=== PATIENT | female | born 1945 | race Caucasian/White ===

== ENCOUNTER 2020-02-26 09:07 | Emergency (ER) | payer MEDICARE, OTHER, SELFPAY ==
[2020-02-26 09:09] VITALS: BP 158/92; PULSE 97; RESP 18; TEMP 36.9; O2SAT 98; BMI 24.9
--- NOTE | 2020-02-26 09:20 | HMH.EDGENADL ---
ED Disposition Clinical Impression: Tachycardia, Hyperglycemia Disposition: Home, Self-Care Condition on Discharge: Good Instructions: DI for Tachycardia Additional Instructions: See Dr. Linares in the office on Sunday. See Dr. Medley for follow-up of your blood sugar. Holter monitor as arranged. Referrals: Jake Medley [Primary Care Provider] - Min Linares MD [Staff Physician] - - Critical Care Critical Care Time: No Attestation: On , the high probability of a clinically significant, sudden or life threatening deterioration of the following system(s) required my full and direct attention, intervention and personal management. The time I documented below is in addition to time spent performing reported procedures but includes the following listed in this critical care notation. Medical Decision Making - Medical Records Medical records reviewed: Yes: I reviewed the patient's medical records. - Darian Inquiry Pt receiving controlled substance: No Vital Signs: 02/26/20 09:09 02/26/20 10:09 Temperature 98.5 F Temperature Source Oral Pulse Rate [Right] 97 H 91 H Respiratory Rate 18 18 Blood Pressure [Right Arm] 158/92 H 137/86 Blood Pressure Mean [Right Arm] 114 103 Blood Pressure Source [Right Arm] Automatic Cuff Blood Pressure Position [Right Arm] Sitting 02 Sat by Pulse Oximetry 98 98 Oxygen Delivery Method Room Air - Lab Data Lab results reviewed: Yes: I reviewed the patient's lab results. Lab Results 02/26/20 09:20: WBC 5.5, RBC 5.01, Hgb 15.2, Hct 46.7, MCV 93.1, MCH 30.3, MCHC 32.5, RDW 13.0, Plt Count 182, MPV 9.0, Neut % (Auto) 55.4, Lymph % (Auto) 31.9, [place] % (Auto) 6.1, Eos % (Auto) 5.3, Baso % (Auto) 1.3, Neut # (Auto) 3.1, Lymph # (Auto) 1.8, [place] # (Auto) 0.3, Eos # (Auto) 0.3, Baso # (Auto) 0.1 02/26/20 09:20: Sodium 139, Potassium 3.4 L, Chloride 106, Carbon Dioxide 27, Anion Gap 9.4, BUN 12, Creatinine 0.70, Estimated Creat Clear 53, Estimated GFR 82, Est GFR ( Amer) 100, Glucose 173 H, Calcium 9.4, Total Bilirubin 0.6, AST 25, ALT 23, Alkaline Phosphatase 95, Troponin I < 0.01, Total Protein 7.6, Albumin 4.6, Globulin 3.0, Albumin/Globulin Ratio 1.5, TSH 1.88, Thyroxine (T4) 9.0 Result diagrams: 02/26/20 09:20 02/26/20 09:20 Orders (Tests/Meds): ORDERS Category Date Time Status Troponin I Q3H Lab 02/26/20 12:30 Ordered Troponin I Q3H Lab 02/26/20 15:30 Ordered ECG Request by /Mary Ellen Stat Y 02/26/20 09:25 Ordered Holter Monitor Req by Mary Ellen/ Stat Y 02/26/20 11:06 Ordered - Radiology Data #1 Image(s): Chest Image Reviewed: Yes I reviewed the patient's radiology image Preliminary Findings: Normal/NAD - ECG Data Tracing #1 EKG interpreted by Fito Arambula MD: Rhythm: sinus tachycardia Rate: 104 [place]: normal Ectopy: none Conduction: normal ST Segment Changes: none T Wave Changes: none Q Waves: none No evidence of acute ischemia or injury - Physician Consults Physician Consulted: MANDI Cabrera, for Dr. Linares Time: 11:02 Reason -: Cardiology Eval/Care Comment/Response: 48-hour Holter monitor. Follow-up in their office on Sunday. General Adult HPI - General Stated complaint: Elavated heart rate Time Seen by Provider: 02/26/20 09:34 - History of Present Illness HPI narrative: Patient complains of a fast heartbeat. She says she has a prior history of SVT and had an ablation, Dr. Grey, about 3 years ago. She was sent there by Dr. Linares. She no longer sees cardiology. States that on Sunday, 3 days ago, she had a fast heartbeat that lasted most of the day. She had a doctor's appointment in [place] for a yearly Pap smear that afternoon at 1:30 PM and she says that she gets nervous about doctors appointments and she chalked it up to that. She says at the time of her doctor's appointment they took her vital signs and did not say anything about her heart rate being fast. Symptoms occurred again this morning
--- NOTE | 2020-02-26 09:25 | XR_ITS ---
PROCEDURE: XR CHEST 2V CLINICAL HISTORY: heart Hypertension, tachycardia COMPARISON: CXR1 CHEST-PORTABLE from 10/19/2016 CXR CHEST(2 VIEWS-NOT PORTABLE) from 04/17/2017 FINDINGS: The cardiomediastinal silhouette and pulmonary vascularity are within normal limits. Increased density is present in the retrocardiac region and may be due to band of atelectasis/scarring or infiltrate. Consider follow-up No acute bony abnormalities. IMPRESSION: Bandlike density in the retrocardiac region which could be due to an area of atelectasis or scarring versus an area of patchy infiltrate. Consider follow-up confirm stability or resolution Dictated by: Rad Liang MD 02/26/2020 10:45 Electronically signed by Rad Liang MD in [place] 02/26/2020 10:45
--- NOTE | 2020-02-26 09:25 | ECG_ITS ---
APPROVED REPORT Exam: Resting ECG HR:104 bpm ECG Measurements Heart Rate 104 AXES MN 148 P 52 QRSd 74 QRS -6 QT 344 T 39 QTc 452 <Conclusion> Sinus tachycardia Otherwise normal ECG Electronically signed by : Andrea Palacios, 02/26/2020 16:56:23
[2020-02-26 09:33] LABS: Chloride 106 mmol/L (98-107)
[2020-02-26 09:34] LABS: Basophils # 0.1 K/mm3 (0-0.2); Basophils % 1.3 % (0.1-2.0); Eosinophils # 0.3 K/mm3 (0.0-0.4); Eosinophils % 5.3 % (0.1-12.0); Hematocrit 46.7 % (37.0-47.0); Hemoglobin 15.2 g/dL (12.2-16.2); Lymphocytes # 1.8 K/mm3 (0.7-4.5); Lymphocytes % 31.9 % (10-50); Mean Corpuscular HGB Conc 32.5 g/dL (31.8-35.4); Mean Corpuscular Hemoglobin 30.3 pg (27.0-31.2); Mean Corpuscular Volume 93.1 fl (81-99); Monocytes # 0.3 K/mm3 (0.1-1.0); Monocytes % 6.1 % (1.7-9.3); Neutrophils # 3.1 K/mm3 (1.8-7.8); Neutrophils % 55.4 % (37.0-80.0); Platelet Count 182 K/mm3 (142-424); Potassium 3.4 mmoL/L (3.5-5.1); Red Blood Count 5.01 M/mm3 (4.20-5.40); Sodium 139 mmol/L (136-145); White Blood Count 5.5 K/mm3 (4.8-10.8)
[2020-02-26 09:36] LABS: Alanine Aminotransferase 23 U/L (12-78); Aspartate Amino Transferase 25 U/L (14-36); Blood Urea Nitrogen 12 mg/dl (7-17); Creatinine Clearance Estimated 53 mL/min (50-200); Estimated Glomerular Filt Rate 82 ml/min (>60); GFR (African American) 100 ML/MIN (>60)
[2020-02-26 09:37] LABS: Albumin Level 4.6 g/dl (3.5-5.0); Albumin/Globulin Ratio 1.5 (1.1-1.8); Alkaline Phosphatase 95 U/L (38-126); Anion Gap 9.4 mEq/L (5-15); Bilirubin,Total 0.6 mg/dl (0.2-1.3); Calcium 9.4 mg/dl (8.4-10.2); Carbon Dioxide 27 mmol/L (22.0-30.0); Glucose 173 mg/dl (74-100); Total Protein,Serum 7.6 g/dl (6.3-8.2)
[2020-02-26 09:50] LABS: Troponin I < 0.01 ng/ml (0.00-0.034)
[2020-02-26 10:08] LABS: Thyroid Stimulating Hormone 1.88 uIU/mL (0.465-4.68)
[2020-02-26 10:09] VITALS: BP 137/86; PULSE 91; RESP 18; O2SAT 98
--- NOTE | 2020-02-26 10:17 | PC.NURSE ---
MESSAGE LEFT FOR ROMAIN TO COME SEE PT OR CALL DR HUNT
--- NOTE | 2020-02-26 10:35 | PC.NURSE ---
PT AMBULATED TO THE BR WITH NO PROBLEMS
--- NOTE | 2020-02-26 10:37 | PC.NURSE ---
speaking to Dr Rodriguez
--- NOTE | 2020-02-26 10:39 | PC.NURSE ---
Gave [facility] detail on pt, stated he would call back
--- NOTE | 2020-02-26 11:20 | PC.NURSE ---
resp here putting holter monitor on
[2020-02-26 11:32] VITALS: BP 129/55; PULSE 95; RESP 20; TEMP 36.8; O2SAT 98
== END 2020-02-26 11:34 | disposition home or self-care (01) ==
PROVIDERS: Emergency Provider Emergency Medicine; PCP Internal Medicine
DX: I47.1 Supraventricular tachycardia (principal); I10 Essential (primary) hypertension; E78.5 Hyperlipidemia, unspecified; R73.9 Hyperglycemia, unspecified; Z79.899 Other long term (current) drug therapy
CPT/HCPCS: 71046; 80053; 84436; 84443; 84484; 85025; 93005; 93225; 93226; 99283

== ENCOUNTER 2020-02-28 15:01 | Emergency (ER) | payer MEDICARE, OTHER, SELFPAY ==
[2020-02-28 15:15] VITALS: BP 109/78; PULSE 87; RESP 20; TEMP 36.7; O2SAT 94; BMI 23.8
--- NOTE | 2020-02-28 15:37 | ECG_ITS ---
APPROVED REPORT Exam: Resting ECG HR:94 bpm ECG Measurements Heart Rate 94 AXES MI 140 P 50 QRSd 72 QRS -14 QT 346 T 30 QTc 432 <Conclusion> Normal sinus rhythm Inferior infarct, age undetermined Abnormal ECG Electronically signed by : Andrea Palacios, 03/03/2020 17:12:04
[2020-02-28 15:44] LABS: Basophils # 0.1 K/mm3 (0-0.2); Basophils % 1.2 % (0.1-2.0); Eosinophils # 0.3 K/mm3 (0.0-0.4); Eosinophils % 4.3 % (0.1-12.0); Hematocrit 45.7 % (37.0-47.0); Hemoglobin 15.8 g/dL (12.2-16.2); Lymphocytes # 1.6 K/mm3 (0.7-4.5); Lymphocytes % 25.3 % (10-50); Mean Corpuscular HGB Conc 34.6 g/dL (31.8-35.4); Mean Corpuscular Hemoglobin 31.5 pg (27.0-31.2); Mean Corpuscular Volume 91.1 fl (81-99); Monocytes # 0.5 K/mm3 (0.1-1.0); Monocytes % 7.4 % (1.7-9.3); Neutrophils # 3.9 K/mm3 (1.8-7.8); Neutrophils % 61.9 % (37.0-80.0); Platelet Count 174 K/mm3 (142-424); Red Blood Count 5.02 M/mm3 (4.20-5.40); Red Cell Distribution Width 13.3 % (11.5-17.5); White Blood Count 6.3 K/mm3 (4.8-10.8)
[2020-02-28 15:49] LABS: Alanine Aminotransferase 19 U/L (12-78); Albumin/Globulin Ratio 1.6 (1.1-1.8); Alkaline Phosphatase 90 U/L (38-126); Anion Gap 16.1 mEq/L (5-15); Aspartate Amino Transferase 28 U/L (14-36); Bilirubin,Total 0.5 mg/dl (0.2-1.3); Blood Urea Nitrogen 17 mg/dl (7-17); Calcium 10.3 mg/dl (8.4-10.2); Carbon Dioxide 29 mmol/L (22.0-30.0); Chloride 99 mmol/L (98-107); Creatinine Clearance Estimated 47 mL/min (50-200); Estimated Glomerular Filt Rate 82 ml/min (>60); GFR (African American) 100 ML/MIN (>60); Globulin 3.2 g/dL (1.3-3.2); Glucose 152 mg/dl (74-100); Potassium 4.1 mmoL/L (3.5-5.1); Sodium 140 mmol/L (136-145); Total Protein,Serum 8.2 g/dl (6.3-8.2)
[2020-02-28 16:02] LABS: Troponin I < 0.01 ng/ml (0.00-0.034)
--- NOTE | 2020-02-28 16:09 | PC.NURSE ---
Pt stated she feels clammy and her ears feel hot Notified MD BARBARA at bedside
[2020-02-28 16:11] VITALS: BP 103/76; PULSE 84; RESP 16; O2SAT 94
--- NOTE | 2020-02-28 16:31 | HMH.EDARPALP ---
ED Disposition Clinical Impression: Palpitations, Sinus tachycardia Disposition: Home, Self-Care Condition on Discharge: Good Instructions: Cardiac Arrhythmia (Alternative Therapy) Prescriptions: Metoprolol Succinate [Metoprolol Succinate 25mg Tablet*] 25 mg PO DAILY 30 Days #30 tab Prescription Printed Referrals: Jake Medley [Primary Care Provider] - - Critical Care Critical Care Time: No Attestation: On 02/28/20, the high probability of a clinically significant, sudden or life threatening deterioration of the following system(s) required my full and direct attention, intervention and personal management. The time I documented below is in addition to time spent performing reported procedures but includes the following listed in this critical care notation. Medical Decision Making - Medical Records Medical records reviewed: Yes: I reviewed the patient's medical records. - Darian Inquiry Pt receiving controlled substance: No Vital Signs: 02/28/20 15:15 02/28/20 16:11 Temperature 98.1 F Temperature Source Oral Pulse Rate [Right] 87 84 Respiratory Rate 20 16 Blood Pressure [Right Arm] 109/78 L 103/76 L Blood Pressure Mean [Right Arm] 88 85 02 Sat by Pulse Oximetry 94 L 94 L - Lab Data Lab results reviewed: Yes: I reviewed the patient's lab results. Lab Results 02/28/20 15:20: WBC 6.3, RBC 5.02, Hgb 15.8, Hct 45.7, MCV 91.1, MCH 31.5 H, MCHC 34.6, RDW 13.3, Plt Count 174, MPV 9.0, Neut % (Auto) 61.9, Lymph % (Auto) 25.3, [place] % (Auto) 7.4, Eos % (Auto) 4.3, Baso % (Auto) 1.2, Neut # (Auto) 3.9, Lymph # (Auto) 1.6, [place] # (Auto) 0.5, Eos # (Auto) 0.3, Baso # (Auto) 0.1 02/28/20 15:20: Sodium 140, Potassium 4.1 D, Chloride 99, Carbon Dioxide 29, Anion Gap 16.1 H, BUN 17 D, Creatinine 0.70, Estimated Creat Clear 47, Estimated GFR 82, Est GFR ( Amer) 100, Glucose 152 H, Calcium 10.3 H, Total Bilirubin 0.5, AST 28, ALT 19, Alkaline Phosphatase 90, Troponin I < 0.01, Total Protein 8.2, Albumin 5.0, Globulin 3.2, Albumin/Globulin Ratio 1.6 Result diagrams: 02/28/20 15:20 02/28/20 15:20 Orders (Tests/Meds): ED MEDICATIONS Discontinued Medications Generic Name Dose Route Start Last Admin Trade Name Iris PRN Reason Stop Dose Admin Metoprolol Succinate 25 mg 02/28/20 16:19 02/28/20 16:23 Toprol Xl 25mg Tablet PO 02/28/20 16:20 25 mg ONCE ONE Administration ORDERS Category Date Time Status Troponin I Q3H Lab 02/28/20 18:45 Ordered Troponin I Q3H Lab 02/28/20 21:45 Ordered ECG Request by /Mary Ellen Stat Y 02/28/20 15:37 Ordered - Radiology Data #1 Image(s): Chest Preliminary Findings: Normal/NAD - ECG Data Tracing #1 I reviewed this ECG and interpreted as documented below: Normal Sinus Rhythm: Yes Arrhythmia/Palpitations HPI - General Chief Complaint: Arrhythmia/Palpitations Stated Complaint: Rapid heart rate Time Seen by Provider: 02/28/20 16:30 Mode of Arrival: Ambulatory Source of Information: Patient Limitations: No Limitations - History of Present Illness HPI narrative: 74-year-old female comes in with complaint of having tachycardia at home. She was seen on for having sinus tachycardia and in the ED here we did consult cardiology and recommended Holter monitor for 24 hours. She did wear the Holter monitor for 24 hours and then returned that and she has a follow-up appoint with cardiology on March 08. She also states 3 years ago she had a cardiac ablation and she is had no issues until recently. As of note she has been on Synthroid and that dose was increased recently. Denies any chest pain. - Related Data Home Medications Medication Instructions Recorded Confirmed Levothyroxine Sodium [Synthroid 25 mcg PO DAILY 02/28/20 02/28/20 25mcg (0.025mg) tablet] Lisinopril/Hydrochlorothiazide 20 mg PO DAILY 02/28/20 02/28/20 [Lisinopril-Hctz 20-12.5 mg Tab] Rosuvastatin Calcium [Crestor 10mg 10 mg PO DAILY 0
[2020-02-28 16:42] VITALS: BP 113/77; PULSE 76; RESP 20; TEMP 36.8; O2SAT 98
== END 2020-02-28 16:45 | disposition home or self-care (01) ==
LOC: UTC 15:10 → ER 15:14
PROVIDERS: Emergency Provider Family Medicine; PCP Internal Medicine
DX: I47.1 Supraventricular tachycardia (principal); E03.9 Hypothyroidism, unspecified; Z79.899 Other long term (current) drug therapy
CPT/HCPCS: 80053; 84484; 85025; 93005; 99283

== ENCOUNTER → 2020-03-08 11:31 | Outpatient (CLI) | payer MEDICARE, OTHER, SELFPAY | PROVIDERS: PCP Internal Medicine; Visit Provider Urology | DX: R00.0 Tachycardia, unspecified (principal); R00.2 Palpitations | CPT/HCPCS: 93270 ==

== ENCOUNTER → 2020-03-10 12:34 | Outpatient (CLI) | payer MEDICARE, OTHER, SELFPAY ==
--- NOTE | 2020-03-10 12:35 | CA_ITS ---
APPROVED REPORT EXAM: Comprehensive 2D, Doppler, and color-flow Echocardiogram Kiln Drawer: Porsche Storey RVT Ht: 5 ft 4 in Wt: 143lbs BSA: 1.70 BP: 154/84 mmHg Indications: PALPS,SINUS TACH,PRIOR ABLATION,HTN,HLD 2D Dimensions LVOT 1.49 cm (M/F) 1.5-2.5 M-Mode Dimensions RVDd 2.24 cm (0.9-2.6) LVDd 3.50 cm (3.5-5.7) LVDs 2.17 cm (3.5-5.7) IVSd 0.97 cm (0.6-1.1) PWd 0.53 cm (0.6-1.1) EF (Teich) 69.20% FS 38.00% EDV (Teich) 50.90 mL ESV (Teich) 15.70 mL LV Diastology E/A Ratio 0.78 Mitral Valve MV A Velocity 109.00 (40-130 cm/s) Left Ventricle Left atrium is mildly enlarged, left ventricle is normal size, mild concentric left ventricular hypertrophy, visually estimated ejection fraction 55% with no regional wall motion abnormality, grade 1 diastolic dysfunction seen without tissue Doppler evidence of raise left atrial pressure. Right Ventricle Right atrium right ventricular normal size and contractility. Aortic Valve Aortic valve is minimally thickened and fibrosed, there is no aortic stenosis or aortic insufficiency. Mitral Valve Mitral valve is grossly normal, there is mild mitral regurgitation. Tricuspid Valve Tricuspid valve is grossly normal, there is mild tricuspid regurgitation, tricuspid regurgitation jet velocity is inadequate for calculation of the right ventricular systolic pressure. Pulmonic Valve Pulmonic valve is poorly visualized. Great Vessels Aortic root is normal size. Pericardium No significant pericardial effusion noted. Conclusion 1. Mildly enlarged left atrium, normal left ventricular size, mild concentric left ventricular hypertrophy, visually estimated ejection fraction 55% with no regional wall motion abnormality, grade 1 diastolic dysfunction seen without tissue Doppler evidence of raise left atrial pressure. 2. Thickened and calcified aortic valve without aortic stenosis or aortic insufficiency. 3. Mild mitral and tricuspid regurgitation. 4. No significant pericardial effusion noted. Electronically signed by : Agustin Srivastava, 03/11/2020 13:28:43
== END ==
PROVIDERS: PCP Internal Medicine; Visit Provider Urology
DX: R00.0 Tachycardia, unspecified (principal); R00.2 Palpitations
CPT/HCPCS: 93306

== ENCOUNTER → 2021-02-16 11:41 | Outpatient (CLI) | payer MEDICARE, OTHER, SELFPAY ==
[2021-02-16 12:54] LABS: Platelet Count 154 K/mm3 (142-424)
== END ==
PROVIDERS: Visit Provider Internal Medicine
DX: D69.6 Thrombocytopenia, unspecified (principal)
CPT/HCPCS: 85049

== ENCOUNTER → 2021-09-07 11:09 | Outpatient (CLI) | payer MEDICARE, OTHER, SELFPAY | PROVIDERS: PCP Internal Medicine; Visit Provider Nurse Practitioner | DX: Z20.822 Contact with and (suspected) exposure to COVID-19 (principal) | CPT/HCPCS: C9803; U0003; U0005 ==

== ENCOUNTER → 2021-10-24 07:40 | Outpatient (CLI) | payer MEDICARE, OTHER, SELFPAY | PROVIDERS: PCP Internal Medicine; Visit Provider Surgery | DX: R19.8 Other specified symptoms and signs involving the digestive system and abdomen (principal) ==

== ENCOUNTER → 2021-10-26 08:38 | Outpatient (CLI) | payer MEDICARE, OTHER, SELFPAY ==
--- NOTE | 2021-10-26 08:39 | FL_ITS ---
FINAL REPORT CLINICAL HISTORY: food stuck, fluro time 2.02 FINDINGS: UPPER GI EXAM HISTORY:Dysphagia PROCEDURE: The patient ingested barium. Effervescent crystals were also administered. Spot and overhead films were obtained. FINDINGS:There is a small sliding-type hiatal hernia with a Schatzki's ring. There is esophageal dysmotility. There is narrowing of the distal esophagus consistent with a mild to moderate stricture.There is gastroesophageal reflux confined to the distal half of the esophagus. 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 FLUOROSCOPY TIME:2 minutes IMPRESSION: 1. Mild to moderate stricture of the distal esophagus. Endoscopic correlation recommended. 2. Mild gastroesophageal reflux. 3. Esophageal dysmotility. Films reviewed , interpreted and dictated by Dr. Molina Transcribed by Mario Shrestha PA-C. Reviewed, Interpreted and Dictated by Gordo Molina III, MD Transcribed by MANDI Cottrell Authenticated by Gordo Molina III, MD on 10/26/2021 12:27:29 PM [facility]
== END ==
PROVIDERS: PCP Internal Medicine; Visit Provider Surgery
DX: R19.8 Other specified symptoms and signs involving the digestive system and abdomen (principal); T17.228A Food in pharynx causing other injury, initial encounter
CPT/HCPCS: 74246

== ENCOUNTER → 2021-11-09 10:21 | Outpatient (CLI) | payer MEDICARE, OTHER, SELFPAY | PROVIDERS: Visit Provider Surgery | DX: Z01.812 Encounter for preprocedural laboratory examination (principal); Z11.52 Encounter for screening for COVID-19; Z13.810 Encounter for screening for upper gastrointestinal disorder; R13.10 Dysphagia, unspecified | CPT/HCPCS: C9803; U0003; U0005 ==

== ENCOUNTER 2021-11-11 06:24 | Day surgery (SDC) | payer MEDICARE, OTHER, SELFPAY ==
[2021-11-07 10:17] VITALS: BMI 24.5
[2021-11-11] VITALS (7 sets, daily range): BP systolic 75–148; BP diastolic 48–90; PULSE 60–71; RESP 16–18; TEMP 36.6–37.1; O2SAT 96–99
--- NOTE | 2021-11-11 07:13 | HMH.ANESCL ---
[facility] Anesthesia Checklist - Patient Identification Patient Identification: Arm Band - Structural Data Admitted From: Home Planned Operative Procedure/s: EGD Consent for Planned Operative Procedure(s) Verified: Yes - NPO Status Verified Time NPO: 00:00 - Airway Assessment C-Spine Mobility Assessed: Yes TMJ Mobility Assessed: Yes Dentition: Good Dentition - Neurological Assessment Level of Consciousness: Awake Hx Seizures: No Numbness or tingling in extremities: No - Anesthesia Plan Anesthesia Risk discussed: Yes Anesthesia Plan: Verified ASA Class: II Anesthesia Type: MAC [facility] History I have reviewed the patient's past medical history: Yes Medical History: Reports:: Hyperlipidemia, Hypertension, Palpitations Denies:: Cancer, Diabetes Mellitus Type 1, Diabetes Mellitus Type 2, Internal Pacemaker, MRSA, Seizures *Have you ever received a pneumonia vaccine?: No *Have you received a flu vaccine this season?: Yes Anesthesia experience/problems:: None Other Surgeries: No: Pacemaker Amputation: No Fractures: No - *Social History Last grade of school completed: Some college Smoking Status: Never smoker Alcohol Intake: never Substance Use Type: denies use *Occupational Status:: retired Housing: house Household Members: spouse *Travel in the last 8 weeks: None Family Hx:: Unable to obtain
--- NOTE | 2021-11-11 07:38 | P.PCN_ITS ---
- Procedure: Date: 11/11/21 Patient Date of :: 1945 Procedure Performed:: Esophagogastroduodenoscopy with biopsy and dilatation Indications:: Patient is a very pleasant 75-year-old female referred by Dr. Medley for EGD. She states that recently she had taken her medication and it became lodged . She had a sensation of it being lodged in the lower chest area. She states it was quite severe and she had significant pain. This persisted. She was on her way for medical attention and had regurgitation of food material with relief of the symptoms. She was seen in the office and scheduled for surgical consultation for EGD. She does state that she has had no similar symptoms as severe as this but has occasionally had transient dysphagia when eating certain foods. She has recently been started on famotidine. I did have her undergo upper GI. This revealed mild to moderate stricture of the distal esophagus with findings consistent with esophageal dysmotility. Performing Provider:: Gordo Gramajo MD Referring Provider:: Jake Medley MD Sedation:: MAC sedation Procedure:: Patient was taken to endoscopy procedure room. She was positioned in lateral decubitus position. Adequate intravenous sedation was achieved with anesthesia titration of propofol. Olympus endoscope was inserted via the oropharynx. Esophagus was cannulated. There was some tortuosity and findings consistent with some esophageal dysmotility. Gastroesophageal junction was encountered at approximately 35 cm. There was a stricture consistent with Schatzki's ring. Stomach was cannulated and insufflated. Retroflexion revealed a moderate sliding hiatal hernia. There were several gastric polyps consistent with fundic gland polyps. Gastric antral mucosal biopsies obtained for CLOtest for H. pylori. Pylorus was traversed. Duodenal bulb and duodenal sweep are unremarkable. Endoscope was withdrawn into the stomach. Gastric antral mucosal biopsies obtained for histopathologic analysis. One of the presumed gastric fundic gland polyps was removed with cold biopsy forceps for sampling. Endoscope was withdrawn into the distal esophagus. Couple biopsies were obtained of the Schatzki's ring benign-appearing stricture. This was then dilated sequentially using the pneumatic dilator to 18 mm then 19 mm then ultimately 20 mm. Stomach was desufflated and the endoscope was withdrawn. Findings:: Gastroesophageal junction 35 cm from the incisors Findings of some esophageal dysmotility Benign-appearing stricture, Schatzki's ring distal esophagus Moderate sliding hiatal hernia Fundic gland polyps Recommendations:: I will plan to follow-up on the biopsies. Treat H. pylori if positive. May ne ed proton pump inhibitor. Complications:: None immediately apparent Estimated blood obtained (mL): 3
== END 2021-11-11 08:25 | disposition home or self-care (01) ==
LOC: OUTP 06:25
PROVIDERS: PCP Internal Medicine; Visit Provider Surgery
PROC: 0DJ08ZZ Inspection of Upper Intestinal Tract, Via Natural or Artificial Opening Endoscopic (ICD-10-PCS; CPT 43235; principal; 2021-11-11 07:30)
DX: K22.2 Esophageal obstruction (principal); K44.9 Diaphragmatic hernia without obstruction or gangrene; K31.7 Polyp of stomach and duodenum; K22.4 Dyskinesia of esophagus; E78.5 Hyperlipidemia, unspecified; I10 Essential (primary) hypertension; R00.2 Palpitations; Z86.79 Personal history of other diseases of the circulatory system; Z79.899 Other long term (current) drug therapy
CPT/HCPCS: 43239; 43249; 87339; 88305; C1726

== ENCOUNTER → 2021-11-16 12:18 | Outpatient (CLI) | payer MEDICARE, OTHER, SELFPAY ==
[2021-11-16 14:04] LABS: Basophils % 0.8 % (0.1-2.0); Eosinophils # 0.3 K/mm3 (0.0-0.4); Eosinophils % 5.6 % (0.1-12.0); Hematocrit 43.1 % (37.0-47.0); Hemoglobin 13.8 g/dL (12.2-16.2); Lymphocytes # 1.4 K/mm3 (0.7-4.5); Lymphocytes % 28.8 % (10-50); Mean Corpuscular HGB Conc 31.9 g/dL (31.8-35.4); Mean Corpuscular Hemoglobin 30.9 pg (27.0-31.2); Mean Corpuscular Volume 96.6 fl (81-99); Mean Platelet Volume 11.3 fl (7.4-10.4); Monocytes # 0.4 K/mm3 (0.1-1.0); Monocytes % 8.8 % (1.7-9.3); Neutrophils # 2.8 K/mm3 (1.8-7.8); Neutrophils % 55.9 % (37.0-80.0); Platelet Count 168 K/mm3 (142-424); Red Blood Count 4.46 M/mm3 (4.20-5.40); Red Cell Distribution Width 14.3 % (11.5-17.5); White Blood Count 4.9 K/mm3 (4.8-10.8)
[2021-11-16 14:40] LABS: Alanine Aminotransferase 17 U/L (12-78); Albumin Level 4.4 g/dl (3.5-5.0); Albumin/Globulin Ratio 1.8 (1.1-1.8); Alkaline Phosphatase 72 U/L (38-126); Anion Gap 12.4 mEq/L (5-15); Aspartate Amino Transferase 28 U/L (14-36); Bilirubin,Total 0.7 mg/dl (0.2-1.3); Blood Urea Nitrogen 15 mg/dl (7-17); Calcium 9.1 mg/dl (8.4-10.2); Carbon Dioxide 30 mmol/L (22.0-30.0); Chloride 103 mmol/L (98-107); Chol/HDL Ratio 2.7 (1-3.5); Cholesterol 145 mg/dl (140-200); Estimated Glomerular Filt Rate 98 ml/min (>60); GFR (African American) 119 ML/MIN (>60); Globulin 2.4 g/dL (1.3-3.2); Glucose 84 mg/dl (74-100); HDL Cholesterol 54 mg/dl (40-60); Potassium 4.4 mmoL/L (3.5-5.1); Sodium 141 mmol/L (136-145); Total Protein,Serum 6.8 g/dl (6.3-8.2); Triglycerides 117 mg/dl (30-150); VLDL Cholesterol 23 mg/dL (0-40)
[2021-11-16 14:51] LABS: Direct LDL Cholesterol 59.65 mg/dL (100-129)
[2021-11-16 15:10] LABS: Thyroid Stimulating Hormone 2.08 uIU/mL (0.465-4.68)
[2021-11-16 15:47] LABS: Free T4 (Free Thyroxine) 1.15 ng/dl (0.78-2.19)
== END ==
PROVIDERS: Visit Provider Internal Medicine
DX: I10 Essential (primary) hypertension (principal); E03.9 Hypothyroidism, unspecified; E78.5 Hyperlipidemia, unspecified; Z86.79 Personal history of other diseases of the circulatory system
CPT/HCPCS: 80053; 80061; 84439; 84443; 85025

== ENCOUNTER → 2022-05-19 14:08 | Outpatient (CLI) | payer MEDICARE, OTHER, SELFPAY ==
[2022-05-19 16:34] LABS: Chloride 102 mmol/L (98-107); Sodium 141 mmol/L (136-145)
[2022-05-19 16:35] LABS: Potassium 4.7 mmoL/L (3.5-5.1)
[2022-05-19 16:37] LABS: Alanine Aminotransferase 22 U/L (12-78); Albumin Level 4.6 g/dl (3.5-5.0); Albumin/Globulin Ratio 1.8 (1.1-1.8); Alkaline Phosphatase 97 U/L (38-126); Anion Gap 12.7 mEq/L (5-15); Aspartate Amino Transferase 30 U/L (14-36); Bilirubin,Total 0.5 mg/dl (0.2-1.3); Blood Urea Nitrogen 18 mg/dl (7-17); Carbon Dioxide 31 mmol/L (22.0-30.0); Estimated Glomerular Filt Rate 82 ml/min (>60); GFR (African American) 99 ML/MIN (>60); Globulin 2.6 g/dL (1.3-3.2); Total Protein,Serum 7.2 g/dl (6.3-8.2)
[2022-05-19 16:38] LABS: Calcium 9.7 mg/dl (8.4-10.2); Glucose 88 mg/dl (74-100); HDL Cholesterol 62 mg/dl (40-60)
[2022-05-19 16:56] LABS: Chol/HDL Ratio 2.5 (1-3.5); Cholesterol 152 mg/dl (140-200); Triglycerides 95 mg/dl (30-150); VLDL Cholesterol 19 mg/dL (0-40)
[2022-05-24 19:08] LABS: Direct LDL Cholesterol 66 mg/dL (100-129)
== END ==
PROVIDERS: PCP Internal Medicine; Visit Provider Internal Medicine
DX: E78.5 Hyperlipidemia, unspecified (principal); I47.1 Supraventricular tachycardia; I10 Essential (primary) hypertension
CPT/HCPCS: 80053; 80061

== ENCOUNTER → 2022-11-24 12:08 | Outpatient (CLI) | payer MEDICARE, OTHER, SELFPAY ==
[2022-11-24 13:09] LABS: Basophils # 0.1 K/mm3 (0-0.2); Basophils % 1.7 % (0.1-2.0); Eosinophils # 0.3 K/mm3 (0.0-0.4); Eosinophils % 7.7 % (0.1-12.0); Hematocrit 44.4 % (37.0-47.0); Hemoglobin 14.6 g/dL (12.2-16.2); Lymphocytes # 1.4 K/mm3 (0.7-4.5); Mean Corpuscular HGB Conc 32.8 g/dL (31.8-35.4); Mean Corpuscular Hemoglobin 30.6 pg (27.0-31.2); Mean Corpuscular Volume 93.1 fl (81-99); Mean Platelet Volume 10.7 fl (7.4-10.4); Monocytes # 0.4 K/mm3 (0.1-1.0); Neutrophils # 2.2 K/mm3 (1.8-7.8); Neutrophils % 49.6 % (37.0-80.0); Platelet Count 180 K/mm3 (142-424); Red Blood Count 4.76 M/mm3 (4.20-5.40); White Blood Count 4.4 K/mm3 (4.8-10.8)
[2022-11-24 14:00] LABS: Chloride 102 mmol/L (98-107); Potassium 4.5 mmoL/L (3.5-5.1); Sodium 139 mmol/L (136-145)
[2022-11-24 14:02] LABS: Alanine Aminotransferase 21 U/L (12-78); Aspartate Amino Transferase 27 U/L (14-36); Blood Urea Nitrogen 16 mg/dl (7-17); Estimated Glomerular Filt Rate 98 ml/min (>60); GFR (African American) 118 ML/MIN (>60)
[2022-11-24 14:03] LABS: Albumin Level 4.6 g/dl (3.5-5.0); Albumin/Globulin Ratio 1.6 (1.1-1.8); Alkaline Phosphatase 83 U/L (38-126); Anion Gap 11.5 mEq/L (5-15); Bilirubin,Total 0.6 mg/dl (0.2-1.3); Carbon Dioxide 30 mmol/L (22.0-30.0); Cholesterol 150 mg/dl (140-200); Globulin 2.8 g/dL (1.3-3.2); Total Protein,Serum 7.4 g/dl (6.3-8.2); Triglycerides 109 mg/dl (30-150); VLDL Cholesterol 22 mg/dL (0-40)
[2022-11-24 14:04] LABS: Chol/HDL Ratio 2.3 (1-3.5); HDL Cholesterol 64 mg/dl (40-60)
[2022-11-24 14:14] LABS: Direct LDL Cholesterol 74.91 mg/dL (100-129)
[2022-11-24 14:32] LABS: Thyroid Stimulating Hormone 2.51 uIU/mL (0.465-4.68)
[2022-11-24 15:08] LABS: Calcium 9.1 mg/dl (8.4-10.2); Glucose 88 mg/dl (74-100)
== END ==
PROVIDERS: PCP Internal Medicine; Visit Provider Internal Medicine
DX: I10 Essential (primary) hypertension (principal); E03.9 Hypothyroidism, unspecified; E78.5 Hyperlipidemia, unspecified
CPT/HCPCS: 80053; 80061; 84443; 85025

== ENCOUNTER 2022-12-24 13:53 | Emergency (ER) | payer MEDICARE, OTHER, SELFPAY ==
[2022-12-24 13:54] VITALS: BP 138/76; PULSE 100; RESP 20; TEMP 37.4; O2SAT 96; BMI 25.2
--- NOTE | 2022-12-24 14:00 | EXP.UTC ---
Discharge Plan Disposition Patient Disposition: Home, Self-Care Condition: Good Prescriptions Prescriptions: New phenazopyridine [Pyridium] 200 mg tablet 200 mg PO Q8H 2 Days Qty: 6 0RF ciprofloxacin HCl [Cipro] 500 mg tablet 500 mg PO BID 7 Days Qty: 14 0RF No Action lisinopril-hydrochlorothiazide 20-12.5 mg tablet 1 tab PO DAILY Qty: 30 5RF cholecalciferol (vitamin D3) 25 mcg (1,000 unit) capsule 25 mcg PO DAILY metoprolol succinate 25 mg tablet extended release 24 hr See Rx Instructions .Route .COMPLEX Qty: 90 2RF Rx Instructions: TAKE 1 TABLET DAILY levothyroxine 25 MCG tablet 25 mcg PO DAILY rosuvastatin 10 MG tablet 10 mg PO DAILY famotidine 20 MG tablet 20 mg PO BID Referrals Follow up/Referrals: Jake Medley MD [Primary Care Provider] - See instructions Activity Restrictions/Add. Instructions Additional Instructions/Restrictions: Drink plenty of fluids. Take tylenol or ibuprofen for pain or fever. Take the medications as directed. Follow up with your regular doctor. GO TO THE ER FOR ANY WORSENING SYMPTOMS The pyridium will make your urine turn orange, this is an expected side effect. It will stain your clothes if it comes into contact with them. We will culture the urine. That will tell what bacteria is causing your infection and which antibiotics will treat it best. Sometimes the first antibiotic we prescribe turns out to not work against different bacteria. So, make sure you follow up within 3 days if you are not getting better. Clinical Impressions Clinical Impression: UTI (urinary tract infection) Instructions Patient Instructions: Urinary Tract Infection, Urine Culture, DI for Urinary Tract Infection (UTI), Phenazopyridine Discharge ED Provider: Mayur Knight [facility] General Stated complaint: pain and burning when urinating, blood in urine Time Seen by Provider: 12/24/22 14:00 History of Present Illness Provider Complaint: She states that since yesterday she has had low back pain, dysuria, and low grade fever. She states that she thinks she has a uti. Related Data Home Medications Medication Instructions Recorded Confirmed levothyroxine 25 mcg tablet 25 mcg PO DAILY thyroid 02/28/20 12/24/22 rosuvastatin 10 mg tablet 10 mg PO DAILY Cholesterol 02/28/20 12/24/22 cholecalciferol (vitamin D3) 25 25 mcg PO DAILY Supplement 10/18/20 12/24/22 mcg (1,000 unit) capsule famotidine 20 mg tablet 20 mg PO BID GERD 11/07/21 12/24/22 Previous Rx's Medication Instructions Recorded lisinopril 20 1 tab PO DAILY bp #30 tabs 03/08/20 mg-hydrochlorothiazide 12.5 mg tablet metoprolol succinate 25 mg See Rx Instructions .Route 07/24/22 tablet,extended release 24 hr .COMPLEX High blood pressure #90 tabs ciprofloxacin HCl 500 mg tablet 500 mg PO BID 7 days #14 tabs 12/24/22 (Cipro) phenazopyridine 200 mg tablet 200 mg PO Q8H 2 days #6 tabs 12/24/22 (Pyridium) Allergies Allergy/AdvReac Type Severity Reaction Status Date / Time No Known Allergies Allergy Verified 12/24/22 14:11 [facility] Disclaimer: The information contained in this section may have been updated after the patient was seen, as this information can be updated by other users. Medical History Cardiac murmur H/O supraventricular tachycardia Surgical History H/O prior ablation treatment Social History Smoking Status: Never smoker alcohol intake: never substance use type: denies use current occupational status: retired Travel in the last 8 weeks: Inside the [place] household members: spouse housing: house current occupational exposures/hazards: No caffeine: No ROS Obtained: Yes All systems reviewed & no additional complaints except as documented Const
[2022-12-24 14:26] LABS: Apearance,Urine Turbid (Clear); Blood, Urine 2+ (Negative); Color,Urine Red (Yellow); Glucose,Urine (UA) 1+ (Negative); Ketones,Urine Negative (Negative); Protein,Urine 1+ (Negative); Specific Gravity, Urine 1.025 (1.005-1.030)
[2022-12-24 14:27] LABS: Bilirubin,Urine Negative (Negative); UTC Leukocyte Esterase,Urine 1+ (Negative); UTC Nitrate,Urine Positive (Negative); Urobilinogen,Urine 2 EU/dl (0.2)
[2022-12-24 14:36] VITALS: BP 138/76; PULSE 100; RESP 20; TEMP 37.4; O2SAT 96
== END 2022-12-24 14:35 | disposition home or self-care (01) ==
PROVIDERS: Emergency Provider Nurse Practitioner Family; PCP Internal Medicine
DX: N39.0 Urinary tract infection, site not specified (principal); R31.9 Hematuria, unspecified; I10 Essential (primary) hypertension; E78.5 Hyperlipidemia, unspecified; M54.50 Low back pain, unspecified; B96.29 Other Escherichia coli [E. coli] as the cause of diseases classified elsewhere
CPT/HCPCS: 81003; 87086; 87088; 87186; 99212; 99214; G0463

== ENCOUNTER → 2023-05-28 13:27 | Outpatient (CLI) | payer MEDICARE, OTHER, SELFPAY ==
[2023-05-28 15:36] LABS: Eosinophils # 0.3 K/mm3 (0.0-0.4); Eosinophils % 8.1 % (0.1-12.0); Hematocrit 45.5 % (37.0-47.0); Hemoglobin 14.5 g/dL (12.2-16.2); Lymphocytes # 1.1 K/mm3 (0.7-4.5); Lymphocytes % 26.6 % (10-50); Mean Corpuscular Hemoglobin 30.1 pg (27.0-31.2); Mean Platelet Volume 11.6 fl (7.4-10.4); Monocytes # 0.4 K/mm3 (0.1-1.0); Monocytes % 9.1 % (1.7-9.3); Neutrophils # 2.3 K/mm3 (1.8-7.8); Neutrophils % 55.2 % (37.0-80.0); Platelet Count 165 K/mm3 (142-424); Red Blood Count 4.84 M/mm3 (4.20-5.40); Red Cell Distribution Width 13.8 % (11.5-17.5); White Blood Count 4.2 K/mm3 (4.8-10.8)
[2023-05-28 16:35] LABS: Alanine Aminotransferase 20 U/L (12-78); Albumin Level 4.4 g/dl (3.5-5.0); Albumin/Globulin Ratio 1.5 (1.1-1.8); Alkaline Phosphatase 87 U/L (38-126); Anion Gap 14.2 mEq/L (5-15); Aspartate Amino Transferase 24 U/L (14-36); Bilirubin,Total 0.5 mg/dl (0.2-1.3); Blood Urea Nitrogen 16 mg/dl (7-17); Calcium 9.2 mg/dl (8.4-10.2); Carbon Dioxide 29 mmol/L (22.0-30.0); Chloride 102 mmol/L (98-107); Chol/HDL Ratio 2.5 (1-3.5); Cholesterol 152 mg/dl (140-200); Estimated Glomerular Filt Rate 82 ml/min (>60); GFR (African American) 99 ML/MIN (>60); Glucose 90 mg/dl (74-100); HDL Cholesterol 60 mg/dl (40-60); Potassium 4.2 mmoL/L (3.5-5.1); Sodium 141 mmol/L (136-145); Total Protein,Serum 7.4 g/dl (6.3-8.2); Triglycerides 105 mg/dl (30-150); VLDL Cholesterol 21 mg/dL (0-40)
[2023-05-28 16:45] LABS: Direct LDL Cholesterol 63.48 mg/dL (100-129)
[2023-05-28 17:04] LABS: Thyroid Stimulating Hormone 2.62 uIU/mL (0.465-4.68)
== END ==
PROVIDERS: PCP Internal Medicine; Visit Provider Internal Medicine
DX: I10 Essential (primary) hypertension (principal); E03.9 Hypothyroidism, unspecified; E78.5 Hyperlipidemia, unspecified; I47.1 Supraventricular tachycardia
CPT/HCPCS: 80053; 80061; 84443; 85025

== ENCOUNTER 2023-11-26 13:19 | Outpatient (CLI) | payer MEDICARE, OTHER, SELFPAY ==
[2023-11-26 15:41] LABS: Alanine Aminotransferase 21 U/L (12-78); Albumin Level 4.5 g/dl (3.5-5.0); Albumin/Globulin Ratio 1.9 (1.1-1.8); Aspartate Amino Transferase 27 U/L (14-36); Blood Urea Nitrogen 12 mg/dl (7-17); Calcium 9.3 mg/dl (8.4-10.2); Carbon Dioxide 32 mmol/L (22.0-30.0); Cholesterol 152 mg/dl (140-200); Estimated Glomerular Filt Rate 82 ml/min (>60); GFR (African American) 99 ML/MIN (>60); Globulin 2.4 g/dL (1.3-3.2); Glucose 92 mg/dl (74-100); Total Protein,Serum 6.9 g/dl (6.3-8.2); Triglycerides 118 mg/dl (30-150); VLDL Cholesterol 24 mg/dL (0-40)
[2023-11-26 15:44] LABS: Alkaline Phosphatase 83 U/L (38-126); Anion Gap 10.4 mEq/L (5-15); Bilirubin,Total 0.5 mg/dl (0.2-1.3); Chloride 103 mmol/L (98-107); Chol/HDL Ratio 2.9 (1-3.5); HDL Cholesterol 53 mg/dl (40-60); Potassium 4.4 mmoL/L (3.5-5.1); Sodium 141 mmol/L (136-145)
[2023-11-26 15:53] LABS: Direct LDL Cholesterol 66.64 mg/dL (100-129)
== END 2023-11-26 23:59 ==
PROVIDERS: PCP Internal Medicine; Visit Provider Internal Medicine
DX: I10 Essential (primary) hypertension (principal); E03.9 Hypothyroidism, unspecified; E78.5 Hyperlipidemia, unspecified; I47.10 Supraventricular tachycardia, unspecified; J30.9 Allergic rhinitis, unspecified
CPT/HCPCS: 80053; 80061

== ENCOUNTER 2024-03-07 09:45 | Emergency (ER) | payer MEDICARE, OTHER, SELFPAY ==
[2024-03-07 10:22] VITALS: BP 122/71; PULSE 78; RESP 18; TEMP 36.6; O2SAT 93; BMI 24.9
--- NOTE | 2024-03-07 10:44 | ED_ITS ---
Discharge Plan Disposition Patient Disposition: Home, Self-Care Condition: Good Prescriptions Prescriptions: No Action lisinopril-hydrochlorothiazide 20-12.5 mg tablet 1 tab PO DAILY Qty: 30 5RF cholecalciferol (vitamin D3) 25 mcg (1,000 unit) capsule 25 mcg PO DAILY metoprolol succinate 25 mg tablet extended release 24 hr See Rx Instructions .ROUTE .COMPLEX Qty: 90 4RF Dose Instruction: TAKE 1 TABLET DAILY FOR HIGH BLOOD PRESSURE Rx Instructions: TAKE 1 TABLET DAILY FOR HIGH BLOOD PRESSURE levothyroxine 25 MCG tablet 25 mcg PO DAILY rosuvastatin 10 MG tablet 10 mg PO DAILY famotidine 20 MG tablet 20 mg PO BID Referrals Follow up/Referrals: Jake Medley MD [Primary Care Provider] - See instructions Activity Restrictions/Add. Instructions Additional Instructions/Restrictions: [facility] or follow up with Dr Medley if symptoms do not improve Clinical Impressions Clinical Impression: Sinusitis Instructions Patient Instructions: DI for Sinusitis Discharge ED Provider: Alanis Miranda [facility] HPI General Stated complaint: congestion, headache, sore throat, cough Mode of Arrival: Ambulatory Source of Information: Patient Limitations: No Limitations Time Seen by Provider: 03/07/24 10:45 Description of Symptoms (Recalled from Triage Doc. by RN): pt c/o a cough, congestion and sinus pain ongoing since 03/05/24 HEENT Symptoms (Recalled from RN notes): Yes Resp Symptoms (Recalled from RN notes): Yes Skin Symptoms (Recalled from RN notes): No MS Symptoms (Recalled from RN notes): No Functional Status (Recalled from RN notes): wnl History of Present Illness Provider Complaint: Cough, congestion, sinus pain and pressure X 2-3 days. Has taken coricidin without relief. Would like a steroid injection. Onset (ago): day(s) (3) Location: head Treatments prior to arrival: none Related Data Home Medications Medication Instructions Recorded Confirmed levothyroxine 25 mcg tablet 25 mcg PO DAILY thyroid 02/28/20 04/18/23 rosuvastatin 10 mg tablet 10 mg PO DAILY Cholesterol 02/28/20 04/18/23 cholecalciferol (vitamin D3) 25 25 mcg PO DAILY Supplement 10/18/20 04/18/23 mcg (1,000 unit) capsule famotidine 20 mg tablet 20 mg PO BID GERD 11/07/21 04/18/23 Previous Rx's Medication Instructions Recorded lisinopril 20 1 tab PO DAILY bp #30 tabs 03/08/20 mg-hydrochlorothiazide 12.5 mg tablet metoprolol succinate 25 mg See Rx Instructions .Route 07/16/23 tablet,extended release 24 hr .COMPLEX #90 tabs Allergies Allergy/AdvReac Type Severity Reaction Status Date / Time No Known Allergies Allergy Verified 03/07/24 10:25 Worker's Comp Is this a Worker's Comp case?: No [facility] Disclaimer: The information contained in this section may have been updated after the patient was seen, as this information can be updated by other users. Medical History Cardiac murmur H/O supraventricular tachycardia Surgical History H/O prior ablation treatment Social History Smoking Status: Never smoker alcohol intake: never substance use type: denies use current occupational status: retired Travel in the last 8 weeks: [place] the [place] household members: spouse housing: house current occupational exposures/hazards: No caffeine: No ROS Obtained: Yes All systems reviewed & no additional complaints except as documented ENT Ears, Nose, Mouth, and Throat: Reports sinus pressure Physical Exam General General appearance: alert and in no apparent distress Head Head exam: atraumatic, normocephalic and normal inspection Eye Eye exam: Present normal appearance, PERRL and EOMI ENT ENT exam: Present normal exam, normal oropharynx, mucous membranes moist, TM's normal bilaterally and normal external ear exam Expanded ENT Exam Nose exam: Present sinus tenderness Neck Neck exam: Present normal inspection, full ROM and trachea midline; Absent meningismus or lymphadenopathy Chest Chest inspection: Present normal inspection and symmetric chest wall rise; Absent tenderness Respiratory Respiratory exam: Present normal lung sounds bilaterally; Absent respiratory distress Cardiovascular Cardiovascular exam: Present regular rate and normal rhythm; Absent JVD Abdominal Exam Abdominal exam: Present soft and normal bowel sounds; Absent distention, tenderness or guarding Extremities Exam Extremities exam: Present normal inspection, full ROM and normal capillary refill; Absent calf tenderness Back Exam Back exam: Present normal inspection; Absent tenderness Neurological Exam Neurological exam: Present alert and oriented X3 Psychiatric Psychiatric exam: Present normal affect and normal mood Skin Skin exam: Present warm, dry, intact and normal color Lymphatic Lymphatic Findings: no adenopathy Medical Decision Making Darian Inquiry Pt receiving controlled substance: No Vital Signs: 03/07/24 10:22 Temperature 98 F Temperature Source Oral Pulse Rate [Left] 78 Respiratory Rate 18 Blood Pressure [Right Arm] 122/71 Blood Pressure Mean [Right Arm] 88 Blood Pressure Source [Right Arm] Automatic Cuff Blood Pressure Position [Right Arm] Sitting 02 Sat by Pulse Oximetry 93 L Oxygen Delivery Method Room Air
[2024-03-07] MEDS: METHYLPREDNISOLONE SOD SUCC 125MG VIAL 125 MG IM (10:54)
[2024-03-07 11:00] VITALS: BP 122/71; PULSE 81; RESP 16; TEMP 36.6; O2SAT 97
== END 2024-03-07 11:03 | disposition home or self-care (01) ==
PROVIDERS: Emergency Provider Physician Assistant; PCP Internal Medicine
DX: J01.90 Acute sinusitis, unspecified (principal); R05.9 Cough, unspecified; R09.81 Nasal congestion
CPT/HCPCS: 96372; 99212; 99214; G0463; J2919

== ENCOUNTER 2024-04-23 08:33 | Outpatient (CLI) | payer MEDICARE, OTHER, SELFPAY ==
--- NOTE | 2024-04-23 08:33 | CA_ITS ---
APPROVED REPORT EXAM: Comprehensive 2D, Doppler, and color-flow Echocardiogram Data Management Engineer: Tanvi Calvillo CRT Ht: 5 ft 4 in Wt: 147lbs BSA: 1.72 BP: 138/75 mmHg Indications: Hyperlipidemia, Hypertension/HDD, ablation 2D Dimensions Left Atrium 2.74 cm LVEF (Wilhelm's) 49.20 % LVOT 1.92 cm (M/F) 1.5-2.5 LV Volume 72.10 mL LA Volume 37.10 mL LA Volume Index 21.60 mL/m2 (M/F) 16-34 EF AP4 58.50 % EF AP2 41.6 % EF BP 49.2 % GL Strain -19.6 % M-Mode Dimensions RVDd 2.10 cm (0.9-2.6) LVDd 4.98 cm (3.5-5.7) Ao Diam 3.86 cm (2.0-3.7) LVDs 3.35 cm (3.5-5.7) IVSd 0.89 cm (0.6-1.1) PWd 0.68 cm (0.6-1.1) EF (Teich) 60.90% FS 32.70% EDV (Teich) 117.10 mL TAPSE 2.10 (<1.7) ESV (Teich) 45.80 mL LV Diastology E Decel Time 203 (160-240 msec) E/A Ratio 0.92 MED E' 6.4 (>= 7 cm/sec) MED A' 12.50 cm/s E'/MED E' Ratio 10.98 (<= 14) LAT E' 7.0 (>= 10 cm/sec) LAT A' 14.00 cm/s E/LAT E' Ratio 10.04 (<= 14) Aortic Valve AoV Peak Nav. 136.0 (50-130 cm/s) AO Peak GR. 7.40 mmHg Mitral Valve MV E Max Nav. 70.0 (40-130 cm/s) MV A Velocity 77.0 (40-130 cm/s) E/A Ratio 0.92 MV Decel. Time 203 (160-240 ms) Tricuspid Valve TR P. Velocity 302.00 cm/s RAP Estimate 10.00 mmHg RVSP 46.50 mmHg Left Ventricle The left ventricle is normal size. The left ventricular systolic function is normal. The left ventricular ejection fraction is within the normal range. There is increased LV wall thickness. There is normal LV segmental wall motion. Transmitral Doppler flow pattern suggests impaired LV relaxation. LVEF is 55%. Right Ventricle The right ventricle is mildly dilated. The right ventricular systolic function is normal. Atria The left atrium size is normal. The right atrium size is normal. There is no Doppler evidence of interatrial shunt. Aortic Valve The aortic valve is mildly thickened. There is no aortic valvular stenosis. No aortic regurgitation is present. Mitral Valve The mitral valve is normal in structure. No evidence of mitral valve stenosis. Mild mitral regurgitation. Tricuspid Valve The tricuspid valve leaflets are thin and pliable. Trace tricuspid regurgitation. There is insufficient TR jet to estimate RVSP. Pulmonic Valve The pulmonary valve is normal in structure. Trace pulmonic regurgitation. Great Vessels The aortic root is normal in size. The ascending aorta is normal in size. IVC is normal in size and collapses >50% with inspiration. Pericardium There is no pericardial effusion. Other Information Study Quality: Fair Conclusion Normal LV systolic function. Mild MR. Electronically signed by : Isabel Cooper MD 04/27/2024 17:48:25
== END 2024-04-23 23:59 | disposition home or self-care (01) ==
LOC: RT 08:33
PROVIDERS: PCP Internal Medicine; Visit Provider Nurse Practitioner Family
DX: I35.9 Nonrheumatic aortic valve disorder, unspecified (principal); I34.0 Nonrheumatic mitral (valve) insufficiency; I51.89 Other ill-defined heart diseases; R01.1 Cardiac murmur, unspecified
CPT/HCPCS: 93306

== ENCOUNTER 2024-05-28 10:20 | Outpatient (CLI) | payer MEDICARE, OTHER, SELFPAY ==
[2024-05-28 17:16] LABS: Basophils # 0.1 K/mm3 (0-0.2); Basophils % 1.1 % (0.1-2.0); Eosinophils # 0.3 K/mm3 (0.0-0.4); Eosinophils % 5.9 % (0.1-12.0); Hematocrit 44.7 % (37.0-47.0); Hemoglobin 14.4 g/dL (12.2-16.2); Lymphocytes # 1.5 K/mm3 (0.7-4.5); Lymphocytes % 32.2 % (10-50); Mean Corpuscular HGB Conc 32.1 g/dL (31.8-35.4); Mean Corpuscular Hemoglobin 31.4 pg (27.0-31.2); Mean Corpuscular Volume 97.8 fl (81-99); Mean Platelet Volume 11.8 fl (7.4-10.4); Monocytes # 0.4 K/mm3 (0.1-1.0); Monocytes % 9.6 % (1.7-9.3); Neutrophils # 2.3 K/mm3 (1.8-7.8); Neutrophils % 51.3 % (37.0-80.0); Platelet Count 188 K/mm3 (142-424); Red Blood Count 4.57 M/mm3 (4.20-5.40); Red Cell Distribution Width 13.8 % (11.5-17.5); White Blood Count 4.5 K/mm3 (4.8-10.8)
[2024-05-28 18:20] LABS: Alanine Aminotransferase 20 U/L (12-78); Albumin Level 4.1 g/dl (3.5-5.0); Albumin/Globulin Ratio 1.4 (1.1-1.8); Alkaline Phosphatase 73 U/L (38-126); Anion Gap 8.3 mEq/L (5-15); Aspartate Amino Transferase 29 U/L (14-36); Bilirubin,Total 0.6 mg/dl (0.2-1.3); Blood Urea Nitrogen 16 mg/dl (7-17); Calcium 9.4 mg/dl (8.4-10.2); Carbon Dioxide 31 mmol/L (22.0-30.0); Chloride 105 mmol/L (98-107); Chol/HDL Ratio 2.6 (1-3.5); Cholesterol 151 mg/dl (140-200); Estimated Glomerular Filt Rate 97 ml/min (>60); GFR (African American) 118 ML/MIN (>60); Globulin 2.9 g/dL (1.3-3.2); Glucose 85 mg/dl (74-100); HDL Cholesterol 58 mg/dl (40-60); Potassium 4.3 mmoL/L (3.5-5.1); Sodium 140 mmol/L (136-145); Triglycerides 118 mg/dl (30-150); VLDL Cholesterol 24 mg/dL (0-40)
[2024-05-28 18:31] LABS: Direct LDL Cholesterol 64.06 mg/dL (100-129)
[2024-05-28 18:50] LABS: Thyroid Stimulating Hormone 2.29 uIU/mL (0.465-4.68)
== END 2024-05-28 23:59 | disposition home or self-care (01) ==
LOC: LAB.DROPOF 05-29 09:42
PROVIDERS: PCP Internal Medicine; Visit Provider Internal Medicine
DX: E78.2 Mixed hyperlipidemia (principal); I10 Essential (primary) hypertension; E03.9 Hypothyroidism, unspecified; E78.5 Hyperlipidemia, unspecified
CPT/HCPCS: 80053; 80061; 84443; 85025

== ENCOUNTER 2024-11-24 09:30 | Outpatient (CLI) | payer MEDICARE, SELFPAY ==
[2024-11-24 18:22] LABS: Albumin Level 4.8 g/dl (3.5-5.0); Chloride 103 mmol/L (98-107); Potassium 4.4 mmoL/L (3.5-5.1); Sodium 139 mmol/L (136-145)
[2024-11-24 18:25] LABS: Alanine Aminotransferase 21 U/L (12-78); Alkaline Phosphatase 85 U/L (38-126); Anion Gap 10.4 mEq/L (5-15); Aspartate Amino Transferase 26 U/L (14-36); Bilirubin,Total 0.8 mg/dl (0.2-1.3); Carbon Dioxide 30 mmol/L (22.0-30.0); Cholesterol 162 mg/dl (140-200); Globulin 2.4 g/dL (1.3-3.2); Total Protein,Serum 7.2 g/dl (6.3-8.2); Triglycerides 131 mg/dl (30-150); VLDL Cholesterol 26 mg/dL (0-40)
[2024-11-24 18:26] LABS: Calcium 9.4 mg/dl (8.4-10.2); Chol/HDL Ratio 2.8 (1-3.5); Glucose 89 mg/dl (74-100); HDL Cholesterol 57 mg/dl (40-60)
[2024-11-24 18:30] LABS: Blood Urea Nitrogen 17 mg/dl (7-17); Estimated Glomerular Filt Rate 81 ml/min (>60); GFR (African American) 98 ML/MIN (>60)
[2024-11-24 18:37] LABS: Direct LDL Cholesterol 66.38 mg/dL (100-129)
== END 2024-11-24 23:59 | disposition home or self-care (01) ==
LOC: LAB.DROPOF 11-25 09:15
PROVIDERS: PCP Internal Medicine; Visit Provider Internal Medicine
DX: E78.2 Mixed hyperlipidemia (principal); I10 Essential (primary) hypertension
CPT/HCPCS: 80053; 80061

== ENCOUNTER 2025-05-04 15:07 | Outpatient (CLI) | payer MEDICARE, SELFPAY ==
--- OUTSIDE RECORDS SUMMARY | 2025-03-06 12:19 | XMS_ITS | Encounter Summary ---
Author Organization [facility] Address [address] [id number] Care Team Providers Care Road Machine Operator Name Role Phone Jake Medley MD Primary Care Provider [phone] Reason for Referral * Diagnostic Imaging (Routine) - Closed Specialty Diagnoses / Procedures Referred By Deejay osorio Referred To Contact Radiology Diagnoses Other screening mammogram Procedures Mammo Screening Digital Tomosynthesis Bilateral With CAD Jake Medley MD [address] [place] [address] [place] [address] Phone: tel: fax: Referral ID Status Reason Start Date Expiration Date Visits Re quested Visits Authorized [id number] Closed 02/20/2025 05/22/2026 1 1 Reason for Visit * Diagnostic Imaging (Routine) - Closed Specialty Diagnoses / Procedures Referred By Deejay osorio Referred To Contact Radiology Diagnoses Other screening mammogram Procedures Mammo Screening Digital Tomosynthesis Bilateral With CAD Jake Medley MD [address] [place] [address] [place] [address] Phone: tel: fax: Referral ID Status Reason Start Date Expiration Date Visits Re quested Visits Authorized [id number] Closed 02/20/2025 05/22/2026 1 1 Encounter Details Date Type Department Care Team (Latest Contact Info) Description 03/06/2025 12:19 PM EDT - 03/06/2025 11:59 PM EDT Hospital Encounter [facility] [address] [place] [address] Jake Medley MD [address] [facility] [address] [place] [address] Other screening mammogram Discharge Disposition: Home or Self Care Social History Tobacco Use Types Packs/Day Years Used Date Smoking Tobacco: Never Assessed Comments No Sex and Gender Information Value Date Recorded Sex Assigned at Not on file Legal Sex Female 12:47 PM EDT Gender Identity Not on file Sexual Orientation Not on file documented as of this encounter Plan of Treatment Not on file documented as of this encounter Procedures Procedure Name Priority Date/Time Associated Diagnosis Comments MAMMO SCREENING DIGITAL TOMOSYNTHESIS BILATERAL W CAD Routine 03/06/2025 1:08 PM EDT Other screening mammogram documented in this encounter Results * Mammo Screening Digital Tomosynthesis Bilateral With CAD (03/06/2025 1:08 PM EDT) Anatomical Region Laterality Modality Breast N/A Mammography 03/10/2025 5:48 PM EDT Impressions 03/10/2025 5:51 PM EDT No suspicious abnormality identified. OVERALL ASSESSMENT: ACR BI-RADS CATEGORY: 1, NEGATIVE: Recommend continued routine annual screening mammogram. The standard false-negative rate of mammography is between 10% and 25%. Complex patterns or increased breast density will markedly elevate the false-negative rate of mammography. A letter, in lay terminology, with the results of this exam will be mailed to the patient. 03/10/2025 5:51 PM by Kelsey Parker MD on Narrative 03/10/2025 5:51 PM EDT BILATERAL DIGITAL SCREENING MAMMOGRAM WITH TOMOSYNTHESIS CLINICAL INDICATION: Screening mammogram. TECHNIQUE: Bilateral low dose full field digital breast tomosynthesis imaging was performed. CAD was utilized. COMPARISON: Prior studies dating back to 05/12/2015. FINDINGS: There are scattered areas of fibroglandular density. RIGHT BREAST: No suspicious masses, calcifications, or areas of distortion are seen. LEFT BREAST: No suspicious masses, calcifications, or areas of distortion are seen. Jake Medley MD IMG MAMMOGRAPHY ORDERABLES Fin al Result documented in this encounter Visit Diagnoses Diagnosis Other screening mammogram documented in this encounter Care Teams Road Machine Operator Relationship Specialty Start Date End Date Jake Medley MD [facility] [address] [facility] [address] [place] [address] PCP - General 05/05/15 documented as of this encounter
--- NOTE | 2025-05-04 15:10 | XR_ITS ---
FINAL REPORT CLINICAL HISTORY: Left knee pain FINDINGS: LEFT KNEE 3 views of the left knee were obtained. There is no acute fracture or dislocation. There are small osteophytes at the undersurface of the patella. Visualized joint spaces are normally aligned. Soft tissues are unremarkable. IMPRESSION: No acute bony abnormality. Reviewed, Interpreted and Dictated by Willam Gomez MD Transcribed by Viky Iqbal Authenticated and [facility]
--- OUTSIDE RECORDS SUMMARY | 2025-05-04 15:10 | XMS_ITS | Clinical Summary ---
Author Organization [facility] [place] Address [address] [facility] [address] [place] [address] Phone Care Team Providers Care Property Adjuster Name Role Phone Jake Medley MD Primary Care Provider Reji Salgado MD Unavailable [phone] Allergies No known active allergies Medications LEVOTHYROXINE SODIUM (LEVOTHYROXINE ORAL) Take 25 mcg by mouth. Active potassium chloride (KLOR-CON 10) 10 mEq Oral Tablet Sustained Release Take 40 mEq by mouth daily. Take 4 tablets daily Active LISINOPRIL-HYDR OCHLOROTHIAZIDE ORAL Take 1 Tab by mouth daily. Active rosuvastatin (CRESTOR) 10 mg Oral Tablet Take 5 mg by mouth nightly. Active cholecalciferol , vitamin D3, 1,000 unit Oral Tablet Take 1 Tab by mouth daily. Active Active Problems Problem Noted Date Diagnosed Date SVT (supraventricular tachycardia) Overview (07/20/2017): EPS, 3D Mapping, SVT Ablation-Dr. Salgado Hypothyroidism Hypertensive heart disease Hyperglycemia Hyperlipidemia Surgical History Surgery Date Site/Laterality Comments WISDOM TOOTH EXTRACTION ABLATION OF DYSRHYTHMIC FOCUS 06/21/2017 EPS, 3D Mapping, SVT Ablation-Dr. Salgado Medical History Medical History Date Comments SVT (supraventricular tachycardia) Hypothyroidism Hypertensive heart disease Hyperglycemia Hyperlipidemia Family History Medical History Relation Name Comments Heart Disease Mother Relation Name Status Comments Mother Social History Tobacco Use Types Packs/Day Years Used Date Smoking Tobacco: Former Smokeless Tobacco: Never Tobacco Cessation:Counseling Given: No Alcohol Use Standard Drinks/Week Comments No 0 (1 standard drink = 0.6 oz pur e alcohol) Comments No Sex and Gender Information Value Date Recorded Sex Assigned at Not on file Legal Sex Female 4:08 PM EDT Gender Identity Not on file Sexual Orientation Not on file Obstetrics History Last Filed Vital Signs Vital Sign Reading Time Taken Comments Blood Pressure 136/84 04/05/2018 12:47 PM EDT Pulse 84 04/05/2018 12:47 PM EDT Temperature - - Respiratory Rate 16 06/21/2017 1:53 PM EDT Oxygen Saturation 97% 04/05/2018 12:47 PM EDT Inhaled Oxygen Concentration - - Weight 62.1 kg (137 lb) 04/05/2018 12:47 PM EDT Height 162.6 cm (5' 4 ) 04/05/2018 12:47 PM EDT Body Mass Index 23.52 04/05/2018 12:47 PM EDT Plan of Treatment Health Maintenance Due Date Last Done Comments Wellness Exam Medicare 12/27/1948 DTaP/TDaP/Td (1 - Tdap) 12/27/1966 Pneumococcal Vaccine 50+ (1 of 1 - PCV) 12/27/1997 Zoster (1 of 2) 12/27/1997 RSV or 60+ (1 - 1-dose 75+ series) 12/27/2022 COVID-19 Vaccine (1 - season) 2024 Influenza Vaccine (#1) 2025 7 (Postponed) Bone Density Screening Addressed 7 (Postponed) Overridden with the intention of not completing the topic Colon Cancer Screening Discontinued Colonoscopy Discontinued 07/31/2017 (Postponed) Hepatitis C Screening Addressed 07/31/2017 (Postponed) Overridden with the intention of not completing the topic Cologuard Discontinued FIT Discontinued Hepatitis B Vaccine Aged Out No longe r eligible based on patient's age to complete this topic Meningococcal B Vaccine Aged Out No l onger eligible based on patient's age to complete this topic Sigmoidoscopy Discontinued Virtual Colonography Discontinued Insurance [facility] [place] [id number] MEDICARE [place] PART A AND B [place] [id number] [place] [id number] [facility] [employer] [facility] Care Teams Property Adjuster Relationship Specialty Start Date End Date Jake Medley MD [facility] [place] [address] [place] [address] PCP - General Internal Medicine 04/23/17 Reji Salgado MD [address] [place] [address] [place] [address] Consulting Physician Internal Medicine - Clinical Cardiac Electrophysiology 04/23/17
--- OUTSIDE RECORDS SUMMARY | 2025-05-04 15:11 | XMS_ITS | Encounter Summary ---
Author Organization [place] [address] Care Team Providers Care Inside Outside Sales Representative Name Role Phone Jake Medley MD Primary Care Provider [phone] Reji Salgado MD Unavailable [phone] Encounter Details Date Type Department Care Team (Late st Contact Info) Description 06/21/2017 Orders Only [facility] [address] [facility] [address] [place] [id number] Reji Salgado MD [address] [place], [place] [id number] Social History Tobacco Use Types Packs/Day Years Used Date Smoking Tobacco: Former Smokeless Tobacco: Never Alcohol Use Standard Drinks/Week Comments No 0 [...] Procedure Name Priority Date/Time Associated Diagnosis Comments EP LAB RECORDINGS Routine 06/21/2017 7:34 AM EDT documented in this encounter Results * EP LAB RECORDINGS (06/21/2017 7:34 AM EDT) 06/21/2017 7:34 AM EDT us Reji Salgado MD CARDIAC CATH ORDERABLES Final Result [facility] [address] [place] [address] documented in this encounter Visit Diagnoses Not on filedocumented in this encounter Care Teams Inside Outside Sales Representative Relationship Specialty Start Date End Date Jake Medley MD [facility] [address] [place] [address] PCP - General Internal Medicine 04/23/17 Reji Salgado MD [address] [place] [address] [place] [address] Consulting Physician Internal Medicine - Clinical Cardiac Electrophysiology 04/23/17 documented as of this encounter
--- OUTSIDE RECORDS SUMMARY | 2025-05-04 15:11 | XMS_ITS | Encounter Summary ---
Author Organization [facility] Address [address] [id number] Care Team Providers Care Elementary School Teacher'S Aide Name Role Phone Jake Medley MD Primary Care Provider [phone] Encounter Details Date Type Department Care Team (Latest Contact Info) Description 03/06/2025 Travel Social History Tobacco Use Types Packs/Day Years Used Date Smoking Tobacco: Never Assessed Comments No Sex and Gender Information Value Date Recorded Sex Assigned at Not on file Legal Sex Female 12:47 PM EDT Gender Identity Not on file Sexual Orientation Not on file documented as of this encounter Plan of Treatment Not on file documented as of this encounter Visit Diagnoses Not on filedocumented in this encounter Care Teams Elementary School Teacher'S Aide Relationship Specialty Start Date End Date Jake Medley MD [address] [facility] [address] [place] [address] PCP - General 05/05/15 documented as of this encounter
--- OUTSIDE RECORDS SUMMARY | 2025-05-04 15:11 | XMS_ITS | Clinical Summary ---
Author Organization [facility] Address [address] [place] [address] Care Team Providers Care Player Development Executive Name Role Phone Jake Medley MD Primary Care Provider [phone] Encounters Date Type Department Care Team Description 03/06/2025 12:19 PM EDT - 03/06/2025 11:59 PM EDT Hospital Encounter [address] [address] Jake Medley MD Other screening mammogram Discharge Disposition: Home or Self Care 03/06/2025 Travel from Last 3 Months Family History Medical History Relation Name Comments Breast cancer Neg Hx Ovarian cancer Neg Hx Social History Tobacco Use Types Packs/Day Years Used Date Smoking Tobacco: Never Assessed Comments No Sex and Gender Information Value Date Recorded Sex Assigned at Not on file Legal Sex Female 12:47 PM EDT Gender Identity Not on file Sexual Orientation Not on file Plan of Treatment Health Maintenance Due Date Last Done Comments ANNUAL PHYSICAL 1945 DXA SCAN 1945 HEPATITIS C SCREENING 1945 TDAP/TD VACCINES (1 - Tdap) 12/27/1966 Pneumococcal Vaccine 50+ (1 of 1 - PCV) 12/27/1997 ZOSTER VACCINE (1 of 2) 12/27/1997 RSV Vaccine - Adults (1 - 1- dose 75+ series) 12/27/2022 COVID-19 Vaccine (2023-2 5 season) 2025 07/08/2024, 07/03/2023, 07/19/2022, Additional history exists INFLUENZA VACCINE 06/17/2025 07/08/2024, 07/10/2020 MAMMOGRAM Discontinued 03/06/2025, 04/12/2023, 01/05/2023, Additional history exists Procedures Procedure Name Priority Date/Time Associated Diagnosis Comments MAMMO SCREENING DIGITAL TOMOSYNTHESIS BILATERAL W CAD Routine 03/06/2025 1:08 PM EDT Other screening mammogram from Last 3 Months Results * Mammo Screening Digital Tomosynthesis Bilateral [...] MD IMG MAMMOGRAPHY ORDERABLES Fin al Result from Last 3 Months Insurance MEDICARE A & B Member Subscriber Plan / Payer (Ef fective 2012-Present) Name:Serena Nogueira Member ID:[id number] Relation to Subscriber:Self Name:Serena Nogueira Subscriber ID:[id number] Payer ID:[id number] Group ID:Not on file Type:Not on file Address: [facility] [id number] [place] [address] Care Teams Player Development Executive Relationship Specialty Start Date End Date Jake Medley MD [address] [address] PCP - General 05/05/15
== END 2025-05-04 23:59 ==
LOC: RAD 15:08
PROVIDERS: PCP Internal Medicine; Visit Provider Internal Medicine
DX: M25.762 Osteophyte, left knee (principal)
CPT/HCPCS: 73562

== ENCOUNTER 2025-05-27 09:05 | Outpatient (CLI) | payer MEDICARE, SELFPAY ==
[2025-05-27 16:08] LABS: Hematocrit 44.8 % (37.0-47.0); Hemoglobin 14.4 g/dL (12.2-16.2); Immature Granulocytes % 0.2 %; Mean Corpuscular HGB Conc 32.1 g/dL (31.8-35.4); Mean Corpuscular Hemoglobin 30.1 pg (27.0-31.2); Mean Corpuscular Volume 93.5 fl (81-99); Nucleated Red Blood Cells % 0 %; Platelet Count 149 K/mm3 (142-424); Red Blood Count 4.79 M/mm3 (4.20-5.40); Red Cell Distribution Width-SD 45.5 fL; White Blood Count 5.2 K/mm3 (4.8-10.8)
[2025-05-27 16:59] LABS: Alanine Aminotransferase 18 U/L (12-78); Albumin Level 4.5 g/dl (3.5-5.0); Albumin/Globulin Ratio 1.7 (1.1-1.8); Alkaline Phosphatase 77 U/L (38-126); Anion Gap 13.2 mEq/L (5-15); Aspartate Amino Transferase 26 U/L (14-36); Bilirubin,Total 0.7 mg/dl (0.2-1.3); Blood Urea Nitrogen 17 mg/dl (7-17); Calcium 9.3 mg/dl (8.4-10.2); Carbon Dioxide 29 mmol/L (22.0-30.0); Chloride 102 mmol/L (98-107); Cholesterol 143 mg/dl (140-200); Creatinine,Serum 0.70 mg/dl (0.52-1.04); Estimated Glomerular Filt Rate 81 ml/min (>60); GFR (African American) 98 ML/MIN (>60); Globulin 2.7 g/dL (1.3-3.2); Glucose 88 mg/dl (74-100); HDL Cholesterol 51 mg/dl (40-60); Potassium 4.2 mmoL/L (3.5-5.1); Sodium 140 mmol/L (136-145); Total Protein,Serum 7.2 g/dl (6.3-8.2); Triglycerides 123 mg/dl (30-150)
[2025-05-27 17:30] LABS: Thyroid Stimulating Hormone 2.32 uIU/mL (0.465-4.68)
--- OUTSIDE RECORDS SUMMARY | 2025-05-29 09:50 | XMS_ITS | Clinical Summary ---
Author Organization [facility] [place] Address [address] [place] [address] Phone Care Team Providers Care Benefits Specialist Recruiter Name Role Phone Jake Medley MD Primary Care Provider [phone] Reji Salgado MD Unavailable [phone] Allergies No known active allergies Medications LEVOTHYROXINE [...] series) 12/27/2022 COVID-19 Vaccine (1 - season) 2025 Influenza Vaccine (#1) 2025 7 (Postponed) Bone [...] Colonography Discontinued Insurance [facility] [place] [id number] MEDICARE [place] PART A AND B [place] [id number] [place] PART A [place] [id number] [facility] Circle [facility] [employer] [facility] Care Teams Benefits Specialist Recruiter Relationship Specialty Start Date End Date Jake Medley MD [facility] [place] [address] [place] [address] PCP - General Internal Medicine 04/23/17 Reji Salgado MD [address] [place] [address] [place] [address] Consulting Physician Internal Medicine - Clinical Cardiac Electrophysiology 04/23/17
--- OUTSIDE RECORDS SUMMARY | 2025-05-29 09:51 | XMS_ITS | Clinical Summary ---
[facility] Address [address] [place] [address] Care Team Providers Care Marriage Counselor Name Role Phone Jake Medley MD Primary Care Provider [phone] Encounters Date Type Department Care Team Description 03/06/2025 12:19 PM EDT - 03/06/2025 11:59 PM EDT Hospital Encounter [address] [address] Jake Medley MD Other screening [...] VACCINE 06/17/2025 07/08/2024, 07/10/2020 MAMMOGRAM Discontinued 03/06/2025, 0412/2023, 01/05/2023, Additional history exists Procedures Procedure Name Priority Date/Time Associated Diagnosis Comments MAMMO SCREENING DIGITAL TOMOSYNTHESIS BILATERAL W CAD Routine 03/06/2025 1:08 PM EDT Other screening mammogram from Last 3 Months Results * Mammo Screening Digital Tomosynthesis Bilateral With CAD (03/06/2025 1:08 PM EDT) Anatomical Region Laterality Modality Breast N/A Mammography 03/10/2025 5:4 8 PM EDT Impressions 03/10/2025 5:51 PM EDT [...] Plan / Payer (Ef fective 2012-Present) Name:Serena Nougeira Member ID:[id number] Relation to Subscriber:Self Name:Serena Nogueira Subscriber ID:[id number] Payer ID:[id number] Group ID:Not on file Type:Not on file Address: [facility] [id number] [address] [place] [address] Care Teams Marriage Counselor Relationship Specialty Start Date End Date Jake Medley MD [facility] [place] [address] [place] [address] PCP - General 05/05/15
--- OUTSIDE RECORDS SUMMARY | 2025-05-29 09:51 | XMS_ITS | Encounter Summary ---
Author Organization [place] [address] Care Team Providers Care Architectural Examiner Name Role Phone Jake Medley MD Primary Care Provider [phone] Reji Salgado MD Unavailable [phone] Encounter Details Date Type Department Care Team (Late st Contact Info) Description 06/21/2017 Orders Only [facility] [address] [facility] [address] [place] [id number] Reji Salgado MD [address] [place], [place] [id number] Social History Tobacco Use Types Packs/Day Years [...] CATH ORDERABLES Final Result [facility] [address] [place] [address] documented in this encounter Visit Diagnoses Not on filedocumented in this encounter Care Teams Architectural Examiner Relationship Specialty Start Date End Date Jake Medley MD [facility] [address] [place] [id number] PCP - General Internal Medicine 04/23/17 Reji Salgado MD [address] [place] [address] [place] [id number] Consulting Physician Internal Medicine - Clinical Cardiac Electrophysiology 04/23/17 documented as of this encounter
== END 2025-05-27 23:59 ==
LOC: LAB.DROPOF 05-29 09:48
PROVIDERS: PCP Internal Medicine; Visit Provider Internal Medicine
DX: E78.5 Hyperlipidemia, unspecified (principal); E03.9 Hypothyroidism, unspecified; I11.9 Hypertensive heart disease without heart failure
CPT/HCPCS: 80053; 80061; 84443; 85025